=== PATIENT | female | born 1980 | race African-American/Black ===

== ENCOUNTER 2017-11-09 16:03 | Emergency (ER) | payer MEDICAID ==
[~2017-11-09] VITALS: Ht 167.6 cm; Wt 85.0 kg
[2017-11-09] MEDS ORDERED: AMLO2.5T45 PO (16:06)
[2017-11-09] MEDS ORDERED: MORPHINE SULFATE 4 MG/ML CPJ (NOT FOR IM USE) IV STA (16:33)
[2017-11-09] MEDS ORDERED: SODIUM CHLORIDE 0.9% 1,000 ML IV ONE (16:33)
[2017-11-09] MEDS ORDERED: ONDANSETRON HCL 4MG/2ML VIAL IV STA (16:33)
[2017-11-09 17:05] LABS: CLARITY URINE CLEAR (CLEAR); COLOR URINE YELLOW (YELLOW); KETONES URINE NEGATIVE (NEGATIVE); LEUKOCYTE ESTERASE URINE NEGATIVE (NEGATIVE); NITRITE URINE NEGATIVE (NEGATIVE); OCCULT BLOOD URINE NEGATIVE (NEGATIVE); PH URINE 5.5 (4.5-8.0); PROTEIN URINE NEGATIVE (NEGATIVE); SPECIFIC GRAVITY URINE 1.019 (1.005-1.030)
[2017-11-09 17:10] LABS: BASOPHILS % 0.6 % (0.0-2.0); EOSINOPHILS % 1.3 % (0.0-5.0); HEMOGLOBIN. 14.2 g/dL (12.0-16.0); LYMPHOCYTES % 46.4 % (20.0-50.0); MEAN CORPUSCULAR HEMOGLOBIN 31.6 pg (28.0-32.0); MEAN CORPUSCULAR VOLUME 91.2 fL (81.0-99.0); MEAN PLATELET VOLUME 7.5 fl (7.4-10.4); MONOCYTES % 7.3 % (2.0-8.0); NEUTROPHILS % 44.4 % (40.0-76.0); PLATELET 311 x1000/uL (130-400)
[2017-11-09 17:17] LABS: CHLORIDE 105 mEq/L (98-107)
[2017-11-09 17:19] LABS: INR 1.1; PROTHROMBIN TIME 11.6 sec (9.4-11.6)
[2017-11-09 17:33] LABS: HCG SCREEN NEGATIVE
[2017-11-09] MEDS ORDERED: KETOROLAC 30MG/ML VIAL IV ONE (20:00)
[2017-11-09 20:11] VITALS: BP 152/93
== END 2017-11-09 20:40 | disposition home or self-care (01) ==
LOC: ER 16:38
DX: K42.9 Umbilical hernia without obstruction or gangrene (principal); I10 Essential (primary) hypertension; R10.811 Right upper quadrant abdominal tenderness
CPT/HCPCS: 36415; 71045; 74176; 80053; 81003; 83690; 83880; 84484; 84703; 85025; 85610; 93005; 96361; 96374; 96375; 99285; J1885; J2270; J2405; J7030; Z7610